=== PATIENT | female | born 1995 ===

== ENCOUNTER 2018-07-15 09:25 | Inpatient (IN) ==
[2018-07-15] MEDS ORDERED: ceFAZolin 3,000 MG in SYRINGE 1 EACH IV ONE (09:50)
[2018-07-15] MEDS ORDERED: FAMOTIDINE 20 MG/2 ML VIAL IV ONE (09:50)
[2018-07-15] MEDS ORDERED: CITRIC ACID/SODIUM CITRATE 30 ML UDCUP PO ONE (09:50)
[2018-07-15] MEDS ORDERED: OXYTOCIN 10 UNIT/ML VIAL IM ONE (09:52)
[2018-07-15] MEDS ORDERED: OXYTOCIN/LR 30 UNIT/1,000 ML BAG IV ONE ×2 (09:52→21:24)
[2018-07-15] MEDS ORDERED: LACTATED RINGERS 1,000 ML IV ONE (09:54)
[2018-07-15] MEDS ORDERED: LACTATED RINGERS 1,000 ML IV SCH (10:00)
[2018-07-15 10:13] LABS: Basophils % 0.1 % (0.0-0.8); Eosinophils # 0.1 10*3/uL (0.0-0.87); Eosinophils % 0.9 % (0.00-10.9); Hematocrit 36.8 VOL% (35.7-47.0); Hemoglobin 11.9 GM/DL (12.0-16.0); Immature Granulocytes % 0.3 %; Immature Granulocytes Absolute 0.02 #; Lymphocytes # 1.5 10*3/uL (1.4-4.0); Lymphocytes % 21.5 % (21.3-54.2); Mean Corpuscular HGB Conc 32.3 GM/DL (32-36); Mean Corpuscular Volume 91.5 FL (87-102); Mean Platelet Volume 12.9 FL (9.6-12.0); Monocytes % 5.8 % (1.7-12.7); Neutrophils % 71.4 % (38.7-73.9); Platelet Count 104 T/CUMM (130-400); Red Blood Count 4.02 MC/CUMM (3.8-5.5); Red Cell Distribution Width 13.2 % (9.3-17.3); White Blood Count 6.8 T/CUMM (4-12)
[2018-07-15] MEDS ORDERED: MORPHINE 10 MG/10 ML VIAL ONE (10:44)
[2018-07-15] MEDS ORDERED: PHENYLEPHRINE 1 MG/10 ML SYRINGE IV ONE ×2 (10:44→13:49)
[2018-07-15] MEDS ORDERED: fentaNYL 100 MCG/2 ML VIAL ONE (10:44)
[2018-07-15] MEDS ORDERED: ONDANSETRON 4 MG/2 ML VIAL ONE (10:45)
[2018-07-15] MEDS ORDERED: KETOROLAC 60 MG/2 ML VIAL IM ONE (10:45)
[2018-07-15] MEDS ORDERED: BUPIVACAINE 0.5% 50 ML VIAL ONE (10:45)
[2018-07-15] MEDS ORDERED: BUPIVACAINE SPINAL 0.75% 2 ML AMP SPINAL ONE (10:45)
[2018-07-15 10:48] LABS: Alanine Aminotransferase 10 U/L (13-56); Albumin 2.6 G/DL (3.4-5.0); Alkaline Phosphatase 141 U/L (45-117); Aspartate Amino Transferase 12 U/L (0-37); Bilirubin,Total < 0.39 MG/DL (0.2-1.0); Blood Urea Nitrogen 9 MG/DL (7-18); Calcium 8.7 MG/DL (8.5-10.1); Glucose 106 MG/DL (74-106); Osmolality,Calculated 273.7 MOS/KG (273-304); Total Protein 6.3 G/DL (6.4-8.3)
[2018-07-15 13:08] LABS: Cord Venous Blood HCO3 21.7 MMOL/L; Cord Venous Blood PCO2 51.7 MMHG; Cord Venous Blood PO2 32.4
[2018-07-15 13:11] LABS: Cord Arterial Blood HCO3 17.8 MMOL/L
[2018-07-15 13:14] LABS: Apearance,Urine CLEAR (Clear); Bacteria,Urine Occasional /HPF (Few); Bilirubin,Urine Negative (Negative); Blood, Urine Negative (Negative); Glucose,Urine (UA) Negative (Negative); Ketones,Urine Negative (Negative); Mucus,Urine Occasional /LPF (Occasional); Nitrite,Urine Negative (Negative); Protein,Urine Negative; RBC,Urine <1 /HPF (0-4); Urine Color Straw (Yellow); Urine Specific Gravity 1.006 (1.001-1.035); Urine Urobilinogen < 2.0 EU/DL (0.2-1.0)
[2018-07-15] MEDS ORDERED: OXYTOCIN/LR 20 UNIT/1,000 ML BAG IV ONE ×2 (13:30→13:35)
[2018-07-15] MEDS ORDERED: SIMETHICONE CHEW 80 MG TABLET PO PRN (13:35)
[2018-07-15] MEDS ORDERED: DEXTROSE 50% 25 GM/50 ML VIAL IV PRN (13:35)
[2018-07-15] MEDS ORDERED: MAGNESIUM HYDROXIDE SUSP 30 ML UDCUP PO PRN (13:35)
[2018-07-15] MEDS ORDERED: ONDANSETRON 4 MG/2 ML VIAL IV PRN ×2 (13:35→20:01)
[2018-07-15] MEDS ORDERED: GLUCAGON 1 MG VIAL IM PRN (13:35)
[2018-07-15] MEDS ORDERED: ACETAMINOPHEN 325 MG TABLET PO PRN (13:35)
[2018-07-15] MEDS ORDERED: RHO(D) IMMUNE GLOBULIN 300 MCG SYRINGE IM ONE (14:00)
[2018-07-15] MEDS ORDERED: diphenhydrAMINE 50 MG/1 ML VIAL IV PRN (15:45)
[2018-07-15] MEDS ORDERED: hydrOXYzine HCL 25 MG/1 ML VIAL IM PRN (15:45)
[2018-07-15] MEDS: HYDROmorphone 2 MG/1 ML VIAL IV PRN ×2 (16:05→20:13)
[2018-07-15] MEDS: ceFAZolin 1,000 MG in SYRINGE 1 EACH IV SCH (20:18)
[2018-07-15] MEDS: DOCUSATE SODIUM 100 MG CAPSULE PO SCH (20:18)
[2018-07-15 21:13] LABS: Basophils % 0.2 % (0.0-0.8); Hematocrit 32.7 VOL% (35.7-47.0); Hemoglobin 10.6 GM/DL (12.0-16.0); Immature Granulocytes % 0.5 %; Immature Granulocytes Absolute 0.05 #; Lymphocytes # 0.5 10*3/uL (1.4-4.0); Lymphocytes % 4.6 % (21.3-54.2); Mean Corpuscular HGB Conc 32.4 GM/DL (32-36); Mean Corpuscular Volume 90.6 FL (87-102); Mean Platelet Volume 13.2 FL (9.6-12.0); Neutrophils % 91.7 % (38.7-73.9); Platelet Count 104 T/CUMM (130-400); Red Blood Count 3.61 MC/CUMM (3.8-5.5); Red Cell Distribution Width 13.1 % (9.3-17.3)
[2018-07-15] MEDS ORDERED: PROMETHAZINE 25 MG/1 ML VIAL IM PRN (21:14)
[2018-07-15] MEDS ORDERED: METHYLERGONOVINE 0.2 MG/1 ML AMP IM ONE (21:24)
[2018-07-15 22:22] LABS: Lymphocytes 6 % (20-55); Segmented Neutrophils 93 % (50-85)
[2018-07-15 22:25] LABS: Platelet Estimate Decreased; Polychromasia Few
[2018-07-15 22:26] LABS: Hypochromasia 1+
[2018-07-15 22:27] LABS: Total Cells Counted 100
[2018-07-16] MEDS: ceFAZolin 1,000 MG in SYRINGE 1 EACH IV SCH (04:05)
[2018-07-16 06:26] LABS: Basophils % 0.3 % (0.0-0.8); Hematocrit 28.8 VOL% (35.7-47.0); Hemoglobin 9.4 GM/DL (12.0-16.0); Immature Granulocytes % 0.3 %; Immature Granulocytes Absolute 0.02 #; Lymphocytes % 13.8 % (21.3-54.2); Mean Corpuscular HGB Conc 32.6 GM/DL (32-36); Mean Platelet Volume 12.9 FL (9.6-12.0); Monocytes % 7.8 % (1.7-12.7); Neutrophils % 77.8 % (38.7-73.9); Platelet Count 101 T/CUMM (130-400); Red Cell Distribution Width 13.1 % (9.3-17.3); White Blood Count 7.5 T/CUMM (4-12)
[2018-07-16] MEDS ORDERED: METOCLOPRAMIDE 10 MG/2 ML VIAL IV SCH (08:00)
[2018-07-16] MEDS ORDERED: METOCLOPRAMIDE 10 MG TABLET ONE (08:36)
[2018-07-16] MEDS: DOCUSATE SODIUM 100 MG CAPSULE PO SCH ×2 (08:43→22:17)
[2018-07-16] MEDS: MULTIVITAMIN (PRENATAL) TABLET PO SCH (08:43)
[2018-07-16] MEDS: IBUPROFEN 800 MG TABLET PO PRN ×2 (08:43→16:01)
[2018-07-16] MEDS ORDERED: METOCLOPRAMIDE 10 MG TABLET PO PRN ×2 (08:58→10:59)
[2018-07-16] MEDS: LACTATED RINGERS 1,000 ML IV SCH (10:22)
[2018-07-16] MEDS: MAGNESIUM HYDROXIDE SUSP 30 ML UDCUP PO SCH ×2 (12:45→22:18)
[2018-07-17] MEDS ORDERED: METOCLOPRAMIDE 10 MG TABLET PO SCH
[2018-07-17] MEDS: IBUPROFEN 800 MG TABLET PO PRN (01:54)
[2018-07-17] MEDS ORDERED: FERROUS SULFATE 325 MG TABLET PO SCH (09:00)
[2018-07-17] MEDS: DOCUSATE SODIUM 100 MG CAPSULE PO SCH (09:38)
[2018-07-17] MEDS: MULTIVITAMIN (PRENATAL) TABLET PO SCH (09:38)
[2018-07-17 11:38] VITALS: BP 113/65
[2018-07-17] MEDS: MAGNESIUM HYDROXIDE SUSP 30 ML UDCUP PO SCH (12:39)
[2018-07-17] MEDS ORDERED: DIPH/TET/ACEL PERT BOOSTER VACCINE 0.5 ML VIAL IM ONE (13:40)
== END 2018-07-17 15:00 | disposition home or self-care (01) | DRG 788 ==
LOC: N.LD 09:25 → N.OB 17:05
PROVIDERS: ADMIT Obstetrics & Gynecology; ATTEND Obstetrics & Gynecology
PROC: LDCSECT (ICD-10-PCS; 2018-07-15 10:00)